=== PATIENT | male | born 1955 | race Caucasian/White ===

== ENCOUNTER 2017-12-25 16:41 | Inpatient (IN) | payer OTHER ==
[~2017-12-25] VITALS: Ht 198.1 cm; Wt 73.5 kg
--- NOTE | ~2017-12-25 | 2DMMODE ---
[facility] [place] [address] 2 D/M-MODE ECHOCARDIOGRAM Name: NIC [facility] Room #: 464- ADM IN .R.#: [id number] Admission: 12/25/17 Attend Phys: Lena Cyr MD Discharge: Date of : 57 Date of Service: 12/28/17 1450 Report #: [id number] THIS REPORT FOR: //name// APPROVED REPORT Study performed: 12/28/2017 13:57:15 EXAM: Comprehensive 2D, Doppler, and color-flow Echocardiogram Patient Location: Bedside Room #: 464 Status: routine BSA: 2.06 HR: 78 bpm BP: 88/61 mmHg Other Information Study Quality: Adequate Indications Syncope Hx afib 2D Dimensions RVDd: 33.33 mm IVSd: 13.79 (7-11mm) LVOT Diam: 21.65 (18-24mm) LVDd: 36.54 mm PWd: 13.82 (7-11mm) Ascending Ao: 34.36 (22-36mm) LVDs: 27.14 (25-40mm) Aortic Root: 33.42 mm Volumes Left Atrial Volume (Systole) Single Plane 4CH: 54.91 mL Single Plane 2CH: 90.71 mL LA ESV Index: 37.00 mL/m2 Aortic Valve AoV Peak Jez.: 1.61 m/s AO Peak Gr.: 10.42 mmHg LVOT Max P.48 mmHg LVOT Max V: 1.77 m/s BHAVESH Vmax: 4.03 cm2 Mitral Valve E/A Ratio: 0.9 MV Decel. Time: 292.39 ms MV E Max Jez.: 0.71 m/s [facility] [place] [address] [place] [address] 2 D/M-MODE ECHOCARDIOGRAM Name: NIC BENEDICT [facility] Room #: 464-[facility] IN ..#: [id number] Admission: 12/25/17 Attend Phys: Lena Cyr MD Discharge: Date of : 57 Date of Service: 12/28/17 1450 Report #: [id number] MV A Jez.: 0.78 m/s MV PHT: 84.79 ms IVRT: 107.27 ms Pulmonary Valve PV Peak Jez.: 0.82 m/s PV Peak Gr.: 2.77 mmHg Pulmonary Vein P Vein S: 0.51 m/s P Vein A: 0.17 m/s P Vein D: 0.26 m/s P Vein A Dur.: 93.4 msec P Vein S/D Ratio: 1.96 Tricuspid Valve TR Peak Jez.: 2.42 m/s TR Peak Gr.: 23.38 mmHg Left Ventricle The left ventricle is normal size. There is normal LV segmental wall motion. Mild concentric left ventricular hypertrophy. The left ventricular systolic function is normal. The left ventricular ejection fraction is within the normal range. LVEF is 60-65%. Mild diastolic dysfunction is present (impaired relaxation pattern). Right Ventricle The right ventricle is normal size. The right ventricular systolic function is normal. Atria The left atrium size is normal. The right atrium size is normal. Aortic Valve The aortic valve is mildly sclerotic No aortic regurgitation is present. There is no aortic valvular stenosis. Mitral Valve The mitral valve is normal in structure. Chordal systolic anterior motion. Trace mitral regurgitation. No evidence of mitral valve stenosis. Tricuspid Valve The tricuspid valve is normal in structure. Trace tricuspid regurgitation. PAP is estimated at 23 mmHg+ estimated RA pressure. [facility] [address] [place] [address] 2 D/M-MODE ECHOCARDIOGRAM Name: [facility] Room #: [address] [place] [address] IN ..#: [id number] Admission: 12/25/17 Attend Phys: Lena Cyr MD Discharge: Date of : 57 Date of Service: 12/28/17 1450 Report #: [id number] Pulmonic Valve The pulmonary valve is normal in structure. There is no pulmonic valvular regurgitation. Great Vessels The aortic root is normal in size. The inferior vena cava is not visualized. Pericardium There is no pericardial effusion. <Conclusion> The left ventricular systolic function is normal. There is normal LV segmental wall motion. LVEF 60-65%. Mild diastolic dysfunction The aortic valve is mildly sclerotic. No aortic regurgitation or stenosis The mitral valve is normal in structure. Chordal systolic anterior motion. Trace mitral regurgitation. Trace tricuspid regurgitation. Pulmonary artery pressure estimated at 23 mmHg+ estimated RA pressure. There is no pericardial effusion. <ELECTRONICALLY SIGNED> By: Kwadwo Aguilar MD, FACC 12/28/17 1450 [id number] Kwadwo Aguilar MD, FACC /INF
--- NOTE | ~2017-12-25 | EKG ---
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: [facility] : 1955 Requested By: Michelle Olmos Order Number: [id number] MD: Harjeet Wick Measurements Intervals [place] Rate: 83 P: -46 [place]: 224 QRS: -28 QRSD: 94 T: 52 QT: 383 QTc: 450 Interpretive Statements Sinus or ectopic atrial rhythm Prolonged [place] interval Probable left atrial enlargement No previous ECG available for comparison Electronically Signed On 12-25-2017 17:49:30 CDT by Harjeet Wick [email or web address] <ELECTRONICALLY SIGNED> By: Harjeet Wick MD 12/25/17 1749 1727 1727 MD ISMAEL Sanz
--- NOTE | ~2017-12-25 | EKG ---
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 : 1955 Requested By: Kwadwo Aguilar Order Number: [id number] MD: Harjeet Wick Measurements Intervals [place] Rate: 81 P: -27 [place]: 225 QRS: -36 QRSD: 101 T: 46 QT: 408 QTc: 474 Interpretive Statements Sinus rhythm Prolonged [place] interval Left axis deviation Low voltage, extremity leads Compared to ECG 12/27/2017 18:47:44 Left-axis deviation now present Low QRS voltage now present Myocardial infarct finding no longer present Electronically Signed On 12-29-2017 8:22:49 CDT by Harjeet Wick [email or web address] <ELECTRONICALLY SIGNED> By: Harjeet Wick MD 12/29/17 0822 Harjeet Wick MD /EPI
--- NOTE | ~2017-12-25 | EKG ---
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 : 1955 Requested By: Glenn Barth Order Number: [id number] MD: Kwadwo Aguilar Measurements Intervals [place] Rate: 85 P: -34 [place]: 229 QRS: -31 QRSD: 96 T: 33 QT: 388 QTc: 462 Interpretive Statements Sinus rhythm Prolonged [place] interval Possible inferior infarct, old Compared to ECG 12/25/2017 17:27:41 No significant change was found Electronically Signed On 12-28-2017 8:10:33 CDT by Kwadwo Aguilar [email or web address] <ELECTRONICALLY SIGNED> By: Kwadwo Aguilar MD, [facility] 12/28/17 0810 1847 1847 Kwadwo Augilar MD, [facility] /EPI
[2017-12-25 16:42] VITALS: BP 99/58
[2017-12-25] MEDS ORDERED: CARDIZEM30 MG PO (17:12)
[2017-12-25] MEDS ORDERED: CYMBALTA30 MG PO (17:12)
[2017-12-25] MEDS ORDERED: BENADRYL25 MG PO (17:12)
[2017-12-25] MEDS ORDERED: PEPCID20 MG PO (17:13)
[2017-12-25] MEDS ORDERED: SYNTHROID50 MCG PO (17:13)
[2017-12-25] MEDS ORDERED: ULTRAM 50MG TAB50 MG PO (17:14)
[2017-12-25 19:01] LABS: ABSOLUTE NEUTROPHILS 5.9 thou/uL (1.4-8.2); BASOPHILS 0.9 % (0.0-2.0); EOSINOPHILS 3.8 % (0.0-3.0); HEMATOCRIT 35.5 % (42.0-52.0); HEMOGLOBIN 12.3 gm/dL (14.0-18.0); LYMPHOCYTES 18.3 % (24.0-44.0); MCH 30.1 pg (26.0-34.0); MCHC 34.6 g/dL (28.0-37.0); MCV 86.9 fL (80.0-100.0); MONOCYTES 10.7 % (1.0-8.0); PLATELET COUNT 227 thou/uL (150-400); POLYS 66.3 % (36.0-66.0); RBC 4.09 mil/uL (4.50-6.00); RDW 14.6 % (10.5-14.5); WBC 8.9 thou/uL (4.0-11.0)
[2017-12-25 19:10] LABS: ANION GAP 3 mmol/L (7-16); BUN 19 mg/dL (7-18); CALCIUM 10.3 mg/dL (8.5-10.1); CHLORIDE 101 mmol/L (98-107); CO2 32 mmol/L (21-32); GLUCOSE 103 mg/dL (74-106); POTASSIUM 4.8 mmol/L (3.5-5.1); SODIUM 136 mmol/L (136-145)
[2017-12-25 19:18] LABS: ALBUMIN 3.2 g/dL (3.4-5.0); MAGNESIUM 1.2 mg/dL (1.8-2.4); SGOT 18 U/L (15-37); SGPT 19 U/L (30-65); TOTAL BILIRUBIN 0.2 mg/dL (<0.1-1.0); TOTAL PROTEIN 7.5 g/dL (6.4-8.2); TROPONIN-I <0.06 ng/mL (<0.06)
[2017-12-25 20:13] LABS: URINE BILIRUBIN NEGATIVE (Negative); URINE BLOOD NEGATIVE (Negative); URINE CLARITY CLEAR; URINE COLOR YELLOW; URINE GLUCOSE-RANDOM* NEGATIVE (Negative); URINE KETONES NEGATIVE (Negative); URINE PROTEIN (DIPSTICK) NEGATIVE (Negative); URINE UROBILINOGEN 0.2 E.U./dl (0.2-1.0)
[2017-12-25 20:14] LABS: URINE LEUKOCYTES-REFLEX TRACE (Negative); URINE NITRITE-REFLEX POSITIVE (Negative)
[2017-12-25 20:22] LABS: AMP/METHAMP Negative (Negative); BARBITURATES Negative (Negative); BENZODIAZEPINES Negative (Negative); COCAINE Negative (Negative); METHADONE Negative (Negative); OPIATES Negative (Negative); PCP Negative (Negative)
[2017-12-25 20:25] LABS: CASTS None Seen /LPF (None Seen); SQUAMOUS 0-3 Few /LPF (0-3)
[2017-12-25 20:26] LABS: BACTERIA-REFLEX 1-9 Few /HPF (None Seen); CRYSTALS None Seen /LPF (None Seen); URINE RBC 0-2 Rare /HPF (0-2)
[2017-12-25 21:04] VITALS: BP 99/58
[2017-12-25 21:32] VITALS: BP 99/63
[2017-12-25 21:43] VITALS: BP 104/68
[2017-12-26 05:33] VITALS: BP 108/74
[2017-12-26 05:49] LABS: CALCIUM 9.4 mg/dL (8.5-10.1); CREATININE 0.7 mg/dL (0.7-1.3); MAGNESIUM 1.2 mg/dL (1.8-2.4); POTASSIUM 4.1 mmol/L (3.5-5.1)
[2017-12-26 08:01] VITALS: BP 108/73
[2017-12-26 15:59] VITALS: BP 113/80
[2017-12-26 20:34] VITALS: BP 106/73
[2017-12-27 03:36] VITALS: BP 109/77
[2017-12-27 07:25] VITALS: BP 106/71
[2017-12-27 13:32] VITALS: BP 117/79
[2017-12-27 15:30] VITALS: BP 108/68
[2017-12-27 20:20] VITALS: BP 104/68
[2017-12-28 05:02] VITALS: BP 120/97
[2017-12-28 06:17] LABS: BASOPHILS 0.5 % (0.0-2.0); EOSINOPHILS 4.9 % (0.0-3.0); HEMATOCRIT 32.8 % (42.0-52.0); HEMOGLOBIN 11.5 gm/dL (14.0-18.0); LYMPHOCYTES 24.4 % (24.0-44.0); MCH 30.5 pg (26.0-34.0); MCHC 35.2 g/dL (28.0-37.0); MCV 86.6 fL (80.0-100.0); MONOCYTES 11.4 % (1.0-8.0); PLATELET COUNT 216 thou/uL (150-400); POLYS 58.8 % (36.0-66.0); RBC 3.79 mil/uL (4.50-6.00); RDW 14.5 % (10.5-14.5); WBC 6.7 thou/uL (4.0-11.0)
[2017-12-28 06:33] LABS: ALBUMIN 2.8 g/dL (3.4-5.0); CALCIUM 9.6 mg/dL (8.5-10.1); CREATININE 0.7 mg/dL (0.7-1.3); MAGNESIUM 1.2 mg/dL (1.8-2.4); POTASSIUM 3.7 mmol/L (3.5-5.1); TOTAL BILIRUBIN 0.2 mg/dL (<0.1-1.0); TOTAL PROTEIN 6.8 g/dL (6.4-8.2)
[2017-12-28 07:04] LABS: FOLIC ACID 5.2 ng/mL (8.6-58.9)
[2017-12-28 07:56] VITALS: BP 101/68
[2017-12-28 15:04] VITALS: BP 100/68
[2017-12-28 19:46] VITALS: BP 101/71
[2017-12-29 07:05] LABS: EOSINOPHILS 5.8 % (0.0-3.0); HEMATOCRIT 33.4 % (42.0-52.0); HEMOGLOBIN 11.7 gm/dL (14.0-18.0); LYMPHOCYTES 28.1 % (24.0-44.0); MCH 30.1 pg (26.0-34.0); MCHC 34.8 g/dL (28.0-37.0); MCV 86.5 fL (80.0-100.0); MONOCYTES 11.7 % (1.0-8.0); PLATELET COUNT 209 thou/uL (150-400); POLYS 53.4 % (36.0-66.0); RBC 3.87 mil/uL (4.50-6.00); RDW 14.4 % (10.5-14.5); WBC 5.6 thou/uL (4.0-11.0)
[2017-12-29 07:12] LABS: CALCIUM 9.8 mg/dL (8.5-10.1); CREATININE 0.6 mg/dL (0.7-1.3); POTASSIUM 4.2 mmol/L (3.5-5.1)
[2017-12-29 08:14] VITALS: BP 113/74
[2017-12-29] MEDS ORDERED: CARDIZEM CD120 MG PO (16:53)
[2017-12-29] MEDS ORDERED: ACETAMINOPHEN325 M1 PO (16:53)
[2017-12-29] MEDS ORDERED: ULTRAM 50MG TAB50 MG PO (16:53)
[2017-12-29] MEDS ORDERED: MAG6464 MG PO (16:53)
[2017-12-29] MEDS ORDERED: SYNTHROID50 MCG PO (16:53)
[2017-12-29] MEDS ORDERED: CEFDINIR300 MG PO (16:54)
[2017-12-29] MEDS ORDERED: A THRU Z ADVAN1 EACH PO (16:56)
[2017-12-29] MEDS ORDERED: VITAMIN B-1100 M1 PO (16:56)
[2017-12-29] MEDS ORDERED: FOLIC ACID1 MG PO (16:56)
[2017-12-29] MEDS ORDERED: VITAMIN D1000 UNI1 PO (17:16)
[2017-12-29] MEDS ORDERED: SYNTHROID75 MCG PO (17:26)
== END 2017-12-29 18:20 | DRG 690 ==
LOC: ER 16:41 → EROBS 20:43 → 4W 20:43
PROVIDERS: Hospitalist; Nurse Practitioner Acute Care; Physician Assistant
DX: N39.0 Urinary tract infection, site not specified (principal); E51.9 Thiamine deficiency, unspecified; I47.1 Supraventricular tachycardia; Z90.49 Acquired absence of other specified parts of digestive tract; E83.42 Hypomagnesemia; E03.9 Hypothyroidism, unspecified; I48.91 Unspecified atrial fibrillation; F14.90 Cocaine use, unspecified, uncomplicated; M62.84 Sarcopenia; G31.2 Degeneration of nervous system due to alcohol; E53.8 Deficiency of other specified B group vitamins; W18.39XA Other fall on same level, initial encounter; Y93.89 Activity, other specified; Y92.89 Other specified places as the place of occurrence of the external cause; Y99.8 Other external cause status; Z79.899 Other long term (current) drug therapy; S42.494D Other nondisplaced fracture of lower end of right humerus, subsequent encounter for fracture with routine healing
CPT/HCPCS: 10040; 10045